=== PATIENT | female | born 1980 | race Two or more races ===

== ENCOUNTER 2024-08-07 10:23 | Outpatient (RCR) | payer BC, SELFPAY ==
--- NOTE | 2024-08-07 12:21 | CTCCONSULT_ITS ---
[facility] [address] [place], [place] [address] Consultation Note Date: 08/07/2024 MR#: [id number] Name: KRYSTIAN CALVERT : 1980 Dx: C73 Malignant neoplasm of thyroid gland Referring physician. Genaro Velarde MD Reason for consultation. Patient with history of thyroid cancer with prior surgery and radioiodine r eferred to the cancer treatment center. History of Present Illness: Patient is a 44-year-old lady who underwent thyroidectomy right modified radical neck dissection right paratracheal node dissection and left neck dissection performed [facility] for papillary thyroid carcinoma. Tumor measured 5.8 cm extending into the parathyroid all so ft tissue and skeletal muscle. Metastatic papillary thyroid carcinoma was seen in 16 of 30 nodes. P reji received 150 mCi of postop radial I-131 on 08/07/2019 with some residual thyroid area uptake b ut no evidence of distant mets. For her age this would be considered stage I. Patient being followe d by stitcher hand Dr. Devi who reportedly increased her Synthroid from 175 to 200 mcg a day. Pat trina felt a lump under left side of the neck which has since gotten smaller. An ultrasound 06/10/2024 revealed enlarged and abnormal right cervical lymph node measuring up to 2.7 cm at the right lateral neck. Patient now referred to the cancer center. Past Medical History: Diabetes psoriasis Meds. 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 Denies smoking drinking; 1 p regnancy 1 Review of Systems: Has a change in vision headaches Physical Exam: General: Well-appearing lady no acute distress HEENT: Atraumatic normocephalic there is tiny 5 mm nodule in the left thyroid area with some fullness in the right thyroid region. No neck nodes felt. CV: Chest clear to auscultation heart regular rate and rhythm ABD: Soft no organomegaly or tenderness EXT: No signs of clubbing or edema. Assessment: 1. Patient history of papillary thyroid carcinoma [id number] status post total thyroidecto my neck dissection performed January 13, 2019 [facility]. 2. 150 mCi of radioiodine postop with total by iodine scan showing no sign of mets. 3. This would make her stage I considering her young age <53. 4. Thyroid supplements managed by her stitcher hand Dr. Devi who has recently increased to 200 mc g a day. 5. Recent ultrasound reveals a possible thyroid mass, suggestive of recurrence. 6. Shall get CT of the neck and chest along with thyroid cancer markers of thyroglobulin and thyrogl obulin antibody. 7. Shall see patient again in 2 months time. Cc: Artemio Duran MD Electronically signed by: Igor Alas MD, DABR 08/07/2024 12:18 PM
== END 2024-08-17 23:59 | disposition home or self-care (01) ==
LOC: SCTC 10:23
PROVIDERS: PCP Internal Medicine Hematology & Oncology; Referring Provider Internal Medicine Hematology & Oncology; Visit Provider Radiology Therapeutic Radiology
DX: C73 Malignant neoplasm of thyroid gland (principal); E89.0 Postprocedural hypothyroidism; Z79.890 Hormone replacement therapy
CPT/HCPCS: 99213; G0463

== ENCOUNTER → 2024-09-16 | Outpatient (CLI) | payer BC, SELFPAY ==
[2024-09-16 10:12] LABS: HCG Qualitative,Urine Negative
--- NOTE | 2024-09-16 10:30 | XR_ITS ---
Examination: CT chest with intravenous contrast 2-D sagittal and coronal reconstructions Exam date and time: September 16, 2024 1108 hours INDICATIONS: Diagnosis malignant neoplasm of thyroid gland, staging CTDI:vol (mGy) 16.3 DLP: (mGycm) 355 Technique: Multiple axial sections of the thorax have been obtained. Sections have been obtained, 3 mm slice thickness. Mediastinal and lung density settings have been obtained. Intravenous contrast administered, 60 cc Isovue-370. 2-D sagittal, coronal images obtained. Low dose protocols were performed. One or more of the following dose reduction techniques were used; automated exposure control, adjustment of the mA and/or KV according to patient size, use of iterative reconstruction technique. Findings: No thoracic aortic aneurysmal dilatation Pulmonary artery segments are not enlarged. No paratracheal tracheobronchial or bronchopulmonary adenopathy At least 20 subcentimeter pulmonary nodules throughout both lungs ranging in size from 2 to 6 mm No pneumonia or pleural disease No visualized liver or splenic lesion Contracted gallbladder Significant right renal scarring Aorta normal size IMPRESSION: Numerous subcentimeter bilateral pulmonary nodules suspicious for metastatic disease
--- NOTE | 2024-09-16 11:00 | XR_ITS ---
Examination: CT soft tissue neck, with intravenous contrast. 2-D coronal reconstructions. 2-D sagittal reconstructions. Date and time of exam :September 16, 2024 1108 hours INDICATIONS: Diagnosis malignant neoplasm thyroid glands, staging. CTDI: vol (mGy):42.3 DLP: (mGycm):1719 Technique: 1.25 mm axial sections of the neck of the obtained. Coronal and sagittal reconstructions have been obtained. Intravenous contrast administered 60 cc Isovue-370. Low dose protocols were performed. One or more of the following dose reduction techniques were used; automated exposure control, adjustment of the mA and/or KV according to patient size, use of iterative reconstruction technique. Findings: Symmetrical nasopharynx oropharynx Numerous bilateral carotid triangle lymph nodes, the largest on the right side 8 mm, the largest on the left side 9 mm Posterior right cervical lymph node 21 mm and adjacent 14 mm lymph node The larynx appears normal No thyroid tissue depicted Normal epiglottis Moderate degenerative disc disease C5-C6. IMPRESSION: Pathologic posterior right cervical lymph nodes, 21 and 14 mm, clinical correlation
== END | disposition home or self-care (01) ==
LOC: CCTX 09:06
PROVIDERS: PCP Internal Medicine Endocrinology, Diabetes & Metabolism; Referring Provider Radiology Therapeutic Radiology; Visit Provider Radiology Therapeutic Radiology
DX: R91.8 Other nonspecific abnormal finding of lung field (principal); C73 Malignant neoplasm of thyroid gland; Z32.00 Encounter for pregnancy test, result unknown
CPT/HCPCS: 70491; 71260; 81025; A4649; Q9967

== ENCOUNTER 2024-11-12 07:54 | Outpatient (RCR) | payer BC, SELFPAY ==
--- NOTE | 2024-11-12 09:04 | CTCFLWUP_ITS ---
[facility] [address] [place], [place] [address] FOLLOW-UP NOTE Date: 11/12/2024 MR#: [id number] Name: KRYSTIAN CALVERT : 1980 Dx: C73 Malignant neoplasm of thyroid gland Identification. 44-year-old patient with history of thyroid cancer with surgery January 13 2019 for papillary thyroid carcinoma. The tumor though locally advanced was still considered stage I with 5.8 cm tumor extending to parathyroid area with 16 positive nodes. There was no distant mets. Patient was then treated with radioactive iodine 150 mCi. Patient currently on Synthroid 200 mcg a day. Ultrasound performed 06/10/2024 showed abnormal right cervical lymph nodes measuring up to 3.[address] scan 09/16/2024 revealed pathologic posterior right cervical nodes 21 and 14 mm with numerous subcentimeter bilateral pulmonary nodules suspicious for met disease. Spoke to patient about needing a biopsy of the right neck and moving forward. Patient agreed. I will see the patient again in 2 months. Electronically signed by: Igor Alas M.D. 11/12/2024 9:02 AM
== END 2024-11-15 23:59 | disposition home or self-care (01) ==
LOC: SCTC 07:54
PROVIDERS: PCP Internal Medicine Endocrinology, Diabetes & Metabolism; Referring Provider Internal Medicine Endocrinology, Diabetes & Metabolism; Visit Provider Radiology Therapeutic Radiology
DX: C73 Malignant neoplasm of thyroid gland (principal); Z79.890 Hormone replacement therapy; Z92.3 Personal history of irradiation
CPT/HCPCS: 99213; G0463

== ENCOUNTER → 2024-12-09 | Outpatient (CLI) | payer BC, SELFPAY ==
[2024-12-05 16:50] VITALS: BMI 36.4
[2024-12-09] VITALS (10 sets, daily range): BP systolic 133–150; BP diastolic 67–92; PULSE 74–98; RESP 10–19; TEMP 36.6–36.8; O2SAT 90–99
[2024-12-09 07:37] LABS: Basophils % (Auto) 0 % (0-2.5); Eosinophils # (Auto) 0.2 Thou/mm3 (0.0-0.5); Eosinophils % (Auto) 2 % (0-10); Hematocrit 41.6 % (36.0-46.0); Immature Granulocytes % (Auto) 0 % (0-0); Immature Granulocytes Auto 0.03 Thou/mm3 (0.00-0.00); Lymphocytes % (Auto) 29 % (10-50); Mean Corpuscular HGB Conc 33.7 g/dl (31.0-37.0); Mean Corpuscular Hemoglobin 28.7 pg (25.0-35.0); Mean Corpuscular Volume 85 fL (80-100); Monocytes # (Auto) 0.7 Thou/mm3 (0.0-0.8); Monocytes % (Auto) 7 % (0-12); Neutrophils # (Auto) 6.3 Thou/mm3 (1.8-7.7); Neutrophils % (Auto) 62 % (37-80); Nucleated Red Blood Cell % 0 /100 WBC (0); Platelet Count 227 Thou/mm3 (140-440); RDW Standard Deviation 39.6 fL (36.4-46.3); Red Blood Count 4.87 Miln/mm3 (4.00-5.20); White Blood Count 10.1 Thou/mm3 (3.6-11.0)
[2024-12-09 07:40] LABS: HCG,Qualitative Serum Negative
--- NOTE | 2024-12-09 08:30 | XR_ITS ---
Examination: CT-guided percutaneous biopsy enlarged soft tissue right neck lymph node CT soft tissue neck without intravenous contrast Date and time of procedure: December 09, 2024 0929 hours INDICATIONS: Significant cervical lymphadenopathy on CT soft tissue neck September 16, 2024 Informed consent provided. A timeout was completed verifying correct patient, procedure, site and positioning. Technique: Axial 3 mm sections were obtained for localization of and enlarged right cervical lymph node Appropriate area is marked. The patient's site was prepped and draped in sterile fashion Maximal sterile barrier technique utilized, including hand hygiene Local anesthesia was obtained with 1% lidocaine. Low dose protocols were performed. One or more of the following dose reduction techniques were used; automated exposure control, adjustment of the mA and/or KV according to patient size, use of iterative reconstruction technique. Utilizing CT fluoroscopic guidance 5 core biopsies obtained of the enlarged right cervical lymph node Patient appears in stable condition during this procedure. At completion of the procedure, the patient is in satisfactory condition. Estimated blood loss 2 cc Complete pathology report to follow. Impression: Successful CT-guided biopsy of enlarged right cervical lymph node
[2024-12-09] MEDS: SODIUM CHLORIDE 0.9% 500 ML 500 ML 50 ML IV (09:00)
[2024-12-09 09:11] LABS: INR 1.1 (0.9-1.3); Partial Thromboplastin Time 25.9 Seconds (22.0-36.0); Prothrombin Time 11.9 Seconds (9.0-12.2)
[2024-12-09] MEDS: fentaNYL CIT INJ 50 mCg/ML AMP 2ML 75 MCG IV (09:54)
[2024-12-09] MEDS: ONDANSETRON INJ 2 MG/ML INJ 2 ML 4 MG IV (10:15)
== END | disposition home or self-care (01) ==
LOC: SIRX 12-11 07:58
PROVIDERS: Radiology Diagnostic Radiology; Referring Provider Radiology Therapeutic Radiology; Visit Provider Radiology Therapeutic Radiology
DX: C73 Malignant neoplasm of thyroid gland (principal)
CPT/HCPCS: 38505; 36415; 77012; 82565; 84520; 84703; 85025; 85610; 85730; J2405; J3010; J7040

== ENCOUNTER 2024-12-18 08:12 | Outpatient (RCR) | payer BC, SELFPAY ==
--- NOTE | 2024-12-18 09:02 | CTCFLWUP_ITS ---
[facility] [address] [place], [place] [address] FOLLOW-UP NOTE Date: 12/18/2024 MR#: [id number] Name: KRYSTIAN CALVERT : 1980 Dx: C73 Malignant neoplasm of thyroid gland Identification. 44-year-old lady with history of papillary thyroid cancer total thyroidectomy January 13, 2019 with right modified radical neck dissection right paratracheal node dissection and left node dissection. Tumor measured 5.8 cm extending to the parathyroid soft tissue and skeletal muscle. Metastatic papillary thyroid carcinoma seen in 16 of 30 nodes. 150 mCi of radioiodine given with some residual thyroid area but no evidence of distant mets. CT scan neck revealed pathologic posterior right cervical node 21 and [address] revealed numerous subcentimeter bilateral pulmonary nodules. Most recent thyroglobulin quite elevated at 261 on 10/21/2024. CT-guided biopsy right neck revealed metastatic papillary thyroid carcinoma. Shall refer patient to [facility] for surgical removal of neck malignancy. Told her about the need for postop radioiodine. Give her 2-month follow-up. Electronically signed by: Igor Alas M.D. 12/18/2024 8:59 AM
== END 2025-01-15 23:59 | disposition home or self-care (01) ==
LOC: SCTC 08:12
PROVIDERS: PCP Obstetrics & Gynecology; Referring Provider Radiology Therapeutic Radiology; Visit Provider Radiology Therapeutic Radiology
DX: C73 Malignant neoplasm of thyroid gland (principal); E89.0 Postprocedural hypothyroidism; R91.8 Other nonspecific abnormal finding of lung field
CPT/HCPCS: 99213; G0463

== ENCOUNTER 2025-05-14 10:35 | Outpatient (RCR) | payer BC, SELFPAY ==
--- NOTE | 2025-04-22 17:29 | CTCFLWUP_ITS ---
[facility] [address] [place], [place] [address] FOLLOW-UP NOTE Date: 04/22/2025 MR#: [id number] Name: KRYSTIAN CALVERT : 1980 Dx: C73 Malignant neoplasm of thyroid gland Identification. 44-year-old lady with history of papillary thyroid cancer total thyroidectomy January 13, 2019 right modified neck dissection right paratracheal node dissection and left neck node dissection. Tumor measured 5.8 cm extending to the parathyroid soft tissue and skeletal muscle. Metastatic papillary thyroid carcinoma seen in 16 of 30 nodes. 150 mCi of radioiodine given with some residual thyroid air but no evidence of distant mets. For her age this would be stage CT of the neck 09/16/2024 revealed pathological posterior right cervical node 21 and 14 mm. Cervical lymph node on the right CT-guided biopsy revealed metastatic papillary carcinoma 12/09/[address] [facility] performed additional thyroid surgery in March and is now back on Synthroid. This is managed by an profiler. Unfortunately we do not have the op record [facility] s or any postop recommendations. I gave patient an appointment for follow-up in 3 months but told her that as soon as we get records from [facility] that I will discuss with her any possible recommendations. Electronically signed by: Igor Alas M.D. 04/22/2025 5:27 PM
--- NOTE | 2025-05-02 12:22 | CTCTXPLNST_ITS ---
Radiation Oncology Treatment Planning Sheet Name: KRYSTIAN CALVERT MR#: [id number] : 1980 Dx: C73 Malignant neoplasm of thyroid gland Date of Service: 05/02/2025 Account #: ?? Pt Treatment Intent: curative palliative other: Stage: Procedure CPT # Ordered Spec. Procedure 33737 Olmedo Complex (set-up) 48573 T 4- T 10 1 Olmedo Simple 92324 1 IMRT Plan 07257 MLC Devices VMAT 95862 Olmedo 3 D 34080 1 TRTMT dev Complex 35800 Vaklok/2F 3 TRTMT dev simple 67656 Basic Burke 48214 2 Special Dosimetry 51123 Spec Physics 15655 Port Films 27707 2 SRS Cranial/1FX 03604 SBR 5 FX or Less /ex: 5 = 5 fx 01626 IMRT Simple 79043 IMRT Complex 75084 IGRT 75161 Rad del [email or web address] 6-10 71168 [place] del [email or web address] 11 85421 3000 10 Cont Med Physics 93568 Treatment Planning 20507 2 Weekly Evaluation 43589 2 Rad del [email or web address] 20 mev 89914 Special Port Plan 55017 TRTMT dev inter 39661 Isodose Complex 68174 Isodose simple 86611 Resp Motion Mgmt Simulation 98158 Placement of Fiducial Markers 77871 Electronically Signed By: Igor Alas MD, JEMR 05/02/2025 12:20 PM
== END 2025-05-18 23:59 | disposition home or self-care (01) ==
LOC: SCTC 10:35
PROVIDERS: PCP Obstetrics & Gynecology; Referring Provider Obstetrics & Gynecology; Visit Provider Radiology Therapeutic Radiology
DX: C73 Malignant neoplasm of thyroid gland (principal); E89.0 Postprocedural hypothyroidism; Z79.890 Hormone replacement therapy
CPT/HCPCS: 99213; G0463

== ENCOUNTER → 2025-06-16 | Outpatient (CLI) | payer BC, SELFPAY ==
[2025-06-16 10:34] LABS: Thyroid Stimulating Hormone 96.58 uIU/mL (0.55-4.78)
== END | disposition home or self-care (01) ==
LOC: SCTO 09:17
PROVIDERS: PCP Physician Assistant; Referring Provider Radiology Therapeutic Radiology; Visit Provider Radiology Therapeutic Radiology
DX: C73 Malignant neoplasm of thyroid gland (principal)
CPT/HCPCS: 36415; 84443

== ENCOUNTER 2025-06-17 08:20 | Outpatient (RCR) | payer BC, SELFPAY ==
--- NOTE | 2025-06-17 09:31 | CTCFLWUP_ITS ---
[facility] [address] [place], [place] [address] FOLLOW-UP NOTE Date: 06/17/2025 MR#: [id number] Name: KRYSTIAN CALVERT : 1980 Dx: C73 Malignant neoplasm of thyroid gland Identification. Patient who underwent resection for recurrent papillary thyroid cancer surgery performed 03/18/[address] Paez [facility]. Original surgery 01/13/2019 for papillary thyroid carcinoma and received 150 mCi of radioiodine 131 completed 08/07/2019. Final pathology from the surgery performed on 03/18/2025 revealed 3 extranodal soft tissue metastatic deposits of papillary thyroid carcinoma tall cell type largest metastatic focus 1.2 cm. On the right neck there was metastatic tall cell subtype papillary carcinoma 5 of 13 lymph nodes. Largest met focus was 1.1 cm. Patient has been off thyroid medication for several weeks and now her TSH is nearly 100. Radiation safety guidelines were discussed. Told to avoid seafood. test will be ordered prior to anticipated procedure done next week. Follow-up will be given. Electronically signed by: Igor Alas M.D. 06/17/2025 9:28 AM
== END 2025-06-17 23:59 | disposition home or self-care (01) ==
LOC: SCTC 08:20
PROVIDERS: Referring Provider Radiology Therapeutic Radiology; Visit Provider Radiology Therapeutic Radiology
DX: C73 Malignant neoplasm of thyroid gland (principal); Z92.3 Personal history of irradiation
CPT/HCPCS: 99213; G0463

== ENCOUNTER → 2025-06-23 | Outpatient (CLI) | payer BC, SELFPAY ==
[2025-06-23 13:06] LABS: HCG Qualitative,Urine Negative
== END | disposition home or self-care (01) ==
LOC: COPL 11:52
PROVIDERS: Referring Provider Radiology Diagnostic Radiology; Visit Provider Radiology Diagnostic Radiology
DX: Z32.00 Encounter for pregnancy test, result unknown (principal)
CPT/HCPCS: 81025

== ENCOUNTER 2025-07-01 09:00 | Outpatient (RCR) | payer BC, SELFPAY ==
--- NOTE | 2025-06-24 09:00 | XR_ITS ---
EXAMINATION: Whole body nuclear medicine thyroid uptake I-131 Date and time: July 01, 2025, 0931 hours INDICATIONS: Diagnosis malignant neoplasm of thyroid, post thyroidectomy December 2018 Technique and findings: Oral administration of 156.2 uCi I 131 Anterior posterior head and chest and whole-body images obtained Salivary gland activity Bowel activity IMPRESSION: Negative for osseous metastatic disease
== END 2025-07-06 23:59 | disposition home or self-care (01) ==
LOC: SNUC 09:00
PROVIDERS: PCP Physician Assistant; Referring Provider Radiology Therapeutic Radiology; Visit Provider Radiology Therapeutic Radiology
DX: C73 Malignant neoplasm of thyroid gland (principal)
CPT/HCPCS: 78014; A9517

== ENCOUNTER 2025-07-03 09:47 | Outpatient (RCR) | payer BC, SELFPAY ==
--- NOTE | 2025-07-03 10:40 | CTCFLWUP_ITS ---
[facility] [address] [place], [place] [address] Follow-up Date: 07/03/2025 ?? Name: KRYSTIAN CALVERT : 1980 Identification. Patient underwent resection for recurrent papillary thyroid cancer surgery performed 03/18/[address] Paez [facility]. Original surgery 01/05/2019 for papillary thyroid carcinoma and received 150 mCi of radioiodine completed 08/07/2019. Final pathology from the most recent surgery performed 03/18/2025 revealed on the left neck 3 extranodal soft tissue metastatic deposits of papillary thyroid carcinoma tall cell type largest metastatic focus 1.2 cm. No lymph nodes present. On the right neck there was metastatic tall cell subtype papillary carcinoma 5/13 lymph nodes. Largest focus was 1.1 cm. Underwent 156 mCi of I-131 completed 06/24/2025 and total body iodine scan after following radiation safety precautions on 07/01/2025 showed no mets . Electronically signed by: Igor Alas M.D. 07/03/2025 10:37 AM Patient is tired but generally well. Reminded her about the results. Will slowly increase Synthroid to 200 mcg by day 5. Patient is being followed by slice cutting machine operator helper who will adjust meds more tightly. Also will check thyroglobulin thyroid antibody and see her back in 2 months with another ultrasound of the ordered.
== END 2025-07-18 23:59 | disposition home or self-care (01) ==
LOC: SCTC 09:47
PROVIDERS: Referring Provider Radiology Therapeutic Radiology; Visit Provider Radiology Therapeutic Radiology
DX: C73 Malignant neoplasm of thyroid gland (principal)
CPT/HCPCS: 99213; G0463

== ENCOUNTER 2025-09-09 07:44 | Outpatient (RCR) | payer BC, SELFPAY ==
--- NOTE | 2025-09-09 08:37 | CTCFLWUP_ITS ---
[facility] [address] [place], [place] [address] FOLLOW-UP NOTE Date: 09/09/2025 MR#: [id number] Name: KRYSTIAN CALVERT : 1980 Dx: C73 Malignant neoplasm of thyroid gland Identification. 45-year-old lady with papillary thyroid carcinoma total thyroidectomy January 13, 2019 with right modified radical dissection right paratracheal node dissection lymph node dissection. Tumor measurement 5.8 cm extent to the parathyroid soft tissue and skeletal muscle. Metastatic papillary thyroid current seen in 16 of 30 nodes. 150 mCi of radioiodine KDDH with some in residual thyroid area but no evidence of distant mets. On follow-up CT scan 09/16/2024 revealed pathological posterior right cervical node [address] of the chest 09/16/2024 revealed numerous subcentimeter bilateral pulmonary nodules. CT-guided biopsy right cervical node 12/09/2024 metastatic papillary thyroid carcinoma. Referred to [facility] side of original thyroid surgery and right and left neck dissection performed by Dr. Paez [facility] 03/18/2025. Final path revealed 3 extranodal soft tissue metastatic deposits of the papillary thyroid carcinoma tall cell type largest metastatic focus 1.2 cm. On the right neck dissection there was metastatic tall cell subtype papillary thyroid carcinoma 5 of 12 lymph nodes; largest metastatic focus 1.1 cm. At [facility] recommendation patient received 156 on 06/24/2025, with subsequent scan week later showing no signs of mets. Patient under care of dual rate supervisor has been taking Synthroid 220 mcg a day. Most recent thyroglobulin 96.3 on 08/25/2025. Patient appears well and works regularly. No neck masses felt lungs are clear. A#!. Thyroidectomy 2019 papillary thyroid carcinoma [facility] tumor 5.8 cm 16 nodes positive. A#2. 150 mCi of radioiodine [facility] . Right and left neck dissection for recurrent papillary thyroid carcinoma [facility] 03/18/2025 Left 3 extranodal metastatic papillary carcinoma tall cell subtype left and 5 out of 12 lymph nodes metastatic tall cell subtype right A#3. At [facility] recommendation had radioiodine 156 mCi 06/24/2025 with subsequent scan showing no mets. A#4. Thyroglobulin elevated at 96.3 on 08/25/2025. A#5. Shall order CT neck chest with contrast and follow-up in 2 months. Electronically signed by: Igor Alas M.D. 09/09/2025 8:35 AM
== END 2025-09-17 23:59 | disposition home or self-care (01) ==
LOC: SCTC 07:44
PROVIDERS: Referring Provider Radiology Therapeutic Radiology; Visit Provider Radiology Therapeutic Radiology
DX: C73 Malignant neoplasm of thyroid gland (principal); E89.0 Postprocedural hypothyroidism; Z79.890 Hormone replacement therapy
CPT/HCPCS: 99213; G0463